=== PATIENT | female | born 1985 | race Caucasian/White ===

== ENCOUNTER → 2016-04-15 | Outpatient (CLI) | payer OTHER ==
[~2016-04-15] MED LIST: OXYC1SOL5 PO; OXYC1TAB63 PO; PRENCAP6 PO
== END ==
LOC: HPND 08:17
PROVIDERS: ATTEND Obstetrics & Gynecology
DX: O35.8XX0 Maternal care for other (suspected) fetal abnormality and damage, not applicable or unspecified (principal); O76 Abnormality in fetal heart rate and rhythm complicating labor and delivery
CPT/HCPCS: 59025; 76811; 76825; 76827; 93325

== ENCOUNTER 2016-07-18 10:18 | Inpatient (IN) | payer OTHER ==
[2016-07-18] VITALS (50 sets, daily range): BP systolic 93–120; BP diastolic 46–67; PULSE 57–102; RESP 16–18; TEMP 98.2–98.7
[~2016-07-18 10:18] MED LIST changes: -OXYC1TAB63 PO
--- NOTE | 2016-07-18 11:03 | PD ---
HPI Travel History International Travel<30 Days: No Contact w/Intl Traveler<30Days: No Known Affected Area: No History of Present Illness HPI This patient is a 30-year-old 3 para 2001 EDC is July 31, 2016 presently at 38 weeks and 1 day she presents with contractions since last evening. Stated that they were irregular however this morning when she awoke they resumed at around 8 AM occurring every 4-5 minutes lasting for about 50-60 seconds. No rupture of membranes no vaginal bleeding the baby is active. care with Dr. Gregorio Mercado course is significant for Rh- for which she received RhoGAM her group B strep is negative states labs and ultrasounds have been normal History Past Medical History Narrative Medical No known drug allergies no major medical problems Obstetric History Obstetric History First baby born 2013 male weight 7 lbs. 15 oz. vaginal delivery Second baby born 2014 male infant weight 6 lbs. 15 oz. 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 MRSA PCR Screens negative 01/16/15 and 01/18/15. Cleared by Infection Control. Home Meds Active Scripts Oxycodone W/ Acetaminophen (Oxycodone/Acetaminophen 5-325 mg/5Ml)1 Tab Tab1 Tab PO Q4H PRN (PAIN SCALE 1 TO 4) #20 TAB Prov:Gregorio Mercado MD 01/18/15 Reported Medications Mv & Min W/Fe Fumarat ( 1) Cap1 Cap PO 01/16/15 Review of Systems Gastrointestinal: Abdominal Pain (irregular contractions) Physical Exam Narrative GENERAL: Well-nourished, well-developed patient. Alert oriented 3 and cooperative in no acute distress SKIN: Warm and dry. HEAD: Normocephalic and atraumatic. EYES: No scleral icterus. No injection or drainage. Conjunctiva are pink ENT: No nasal drainage noted. Mucous membranes pink. Airway patent. Mucous membranes are moist NECK: Supple, trachea midline. No JVD. No thyromegaly no lymphadenopathy CARDIOVASCULAR: Regular rate and rhythm without murmurs, gallops, or rubs. RESPIRATORY: Breath sounds equal bilaterally. No accessory muscle use. ABDOMEN/GI: Gravid consistent with stated gestational age mild palpable contractions estimated weight 6-1/2 pounds Gravid to [-] weeks size 38 Fundal Height: [-] GENITOURINARY: External Genitalia: intact and normal in appearance BUS glands: [-] Cervix: [-] Posterior soft Dilatation: [-] 4 cm Effacement: [-] 90% effaced Station: [-] -1 station Presentation: [-] Vertex Membranes: [intact Uterine Contractions: [-] Every 3 minutes FHT's: Category: [-] 1 Baseline: [-] 150 Reactive: [-] + Accelerations up to 180 Variability: [-] Moderate Decels: [-] 0 EXTREMITIES: No cyanosis or edema. 2+ reflexes NEUROLOGICAL: Awake and alert. Motor and sensory grossly within normal limits. Five out of 5 muscle strength in all muscle groups. Normal speech. Data Data Vital Signs Reviewed: Yes (blood pressure 114/61 pulse is 94 she is afebrile) [facility] Medical Record Reviewed: No (no records available at this time will obtain copy from the office) Interpretation(s) 30-year-old 3 para 2 at 38 weeks and 1 day Early labor Group B strep negative Rh- received RhoGAM at 28 weeks Plan External monitoring Discussed with Dr. Mercado concerning admission versus observation Patient unsure about an epidural will give it consideration Physician Communication Spoke with Dr. Mercado states to admit the patient in active labor Diagnosis Diagnosis: Primary Impression: with 38 completed weeks gestation Additional Impression: Irregular contractions Joanie Quinones MD July 18, 2016 11:03
[2016-07-18] MEDS ORDERED: LACTATED RINGER'S 1000 ML INJ 1,000 ML IV SCH (11:08)
[2016-07-18] MEDS ORDERED: LACTATED RINGER'S 1000 ML INJ 1,000 ML IV PRN (11:08)
--- NOTE | 2016-07-18 11:08 | HHI.HP ---
History & Physical H&P HPI HPI Travel History International Travel<30 Days: No Contact w/Intl Traveler<30Days: No Known Affected Area: No History of Present Illness HPI This patient is a 30-year-old 3 para 2001 EDC is July 31, 2016 presently at 38 weeks and 1 day she presents with contractions since last evening. Stated that they were irregular however this morning when she awoke they resumed at around 8 AM occurring every 4-5 minutes lasting for about 50-60 seconds. No rupture of membranes no vaginal bleeding the baby is active. care with Dr. Gregorio Mercado course is significant for Rh- for which she received RhoGAM her group B strep is negative states labs and ultrasounds have been normal History (Limited) History Past Medical History Narrative Medical No known drug allergies no major medical problems Obstetric History Obstetric History First baby born 2013 male weight 7 lbs. 15 oz. vaginal delivery Second baby born 2014 male weight 6 lbs. 15 oz. 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 MRSA PCR Screens negative 01/16/15 and 01/18/15. Cleared by Infection Control. Home Meds Active Scripts Oxycodone W/ Acetaminophen (Oxycodone/Acetaminophen 5-325 mg/5Ml)1 Tab Tab1 Tab PO Q4H PRN (PAIN SCALE 1 TO 4) #20 TAB Prov:Gregorio Mercado MD 01/18/15 Reported Medications Mv & Min W/Fe Fumarat ( 1) Cap1 Cap PO 01/16/15 ROS Review of Systems Gastrointestinal: Abdominal Pain (irregular contractions) Physical Exam Physical Exam Narrative GENERAL: Well-nourished, well-developed patient. Alert oriented 3 and cooperative in no acute distress SKIN: Warm and dry. HEAD: Normocephalic and atraumatic. EYES: No scleral icterus. No injection or drainage. Conjunctiva are pink ENT: No nasal drainage noted. Mucous membranes pink. Airway patent. Mucous membranes are moist NECK: Supple, trachea midline. No JVD. No thyromegaly no lymphadenopathy CARDIOVASCULAR: Regular rate and rhythm without murmurs, gallops, or rubs. RESPIRATORY: Breath sounds equal bilaterally. No accessory muscle use. ABDOMEN/GI: Gravid consistent with stated gestational age mild palpable contractions estimated weight 6-1/2 pounds Gravid to [-] weeks size 38 Fundal Height: [-] GENITOURINARY: External Genitalia: intact and normal in appearance BUS glands: [-] Cervix: [-] Posterior soft Dilatation: [-] 4 cm Effacement: [-] 90% effaced Station: [-] -1 station Presentation: [-] Vertex Membranes: [intact Uterine Contractions: [-] Every 3 minutes FHT's: Category: [-] 1 Baseline: [-] 150 Reactive: [-] + Accelerations up to 180 Variability: [-] Moderate Decels: [-] 0 EXTREMITIES: No cyanosis or edema. 2+ reflexes NEUROLOGICAL: Awake and alert. Motor and sensory grossly within normal limits. Five out of 5 muscle strength in all muscle groups. Normal speech. Data Data Data Vital Signs Reviewed: Yes (blood pressure 114/61 pulse is 94 she is afebrile) [facility] Medical Record Reviewed: No (no records available at this time will obtain copy from the office) Interpretation(s) 30-year-old 3 para 2 at 38 weeks and 1 day Early labor Group B strep negative Rh- received RhoGAM at 28 weeks Plan External monitoring Discussed with Dr. Mercado concerning admission versus observation Patient unsure about an epidural will give it consideration Physician Communication Spoke with Dr. Mercado states to admit the patient in active labor Diagnosis Diagnosis: Primary Impression: with 38 completed weeks gestation Additional Impression: Irregular contractions Joanie Quinones MD July 18, 2016 11:03 Joanie Quinones MD July 18, 2016 11:08
[2016-07-18] MEDS ORDERED: ONDANSETRON HCL 4 MG/2 ML VIAL IV PRN (11:15)
[2016-07-18] MEDS ORDERED: SODIUM CHLORID 0.9% 500 ML INJ 500 ML IV PRN (11:15)
[2016-07-18] MEDS ORDERED: LIDOCAINE HCL 1% 50 ML VIAL I-DERMAL PRN (11:15)
[2016-07-18] MEDS ORDERED: CITRIC ACID-SODIUM CITRATE LIQ 30 ML UDC PO SCH (11:15)
[2016-07-18] MEDS ORDERED: MINERAL OIL 10 ML VIAL TOPICAL PRN (11:15)
[2016-07-18] MEDS ORDERED: OXYTOCIN 30 UNITS-500ML PREMIX 500 ML IV ONE (11:15)
[2016-07-18] MEDS ORDERED: LIDOCAINE HCL 1% 50 ML VIAL INFIL PRN (11:15)
[2016-07-18] MEDS ORDERED: SODIUM CHLOR 0.9% 1000 ML INJ 1,000 ML IV PRN (11:28)
[2016-07-18 12:07] LABS: BLOOD, URINE NEG (NEG); COMMENT (UR) CULT NOT INDICATED; CULTURE IF INDICATED CULT NOT INDICATED; GLUCOSE,URINE NEG (NEG); KETONE, URINE NEG (NEG); MUCUS URINE FEW /lpf (OCC); NITRITE,URINE NEG (NEG); PH, URINE 7.5 (5.0-8.5); SQUAMOUS EPITHELIAL CELL URINE <1 /hpf (0-5); URINE COLOR YELLOW (YELLW/STRAW)
[2016-07-18 12:09] LABS: AUTOMATED NEUTROPHIL # 6.7 TH/MM3 (1.8-7.7); BASOPHIL % 0.4 % (0.0-2.0); EOSINOPHIL # 0.1 TH/MM3 (0-0.4); EOSINOPHIL % 0.6 % (0.0-4.0); HEMATOCRIT 33.6 % (35.0-46.0); HEMO FLAGS DIFF FINAL; LYMPH % 26.5 % (9.0-44.0); LYMPHOCYTE # 2.7 TH/MM3 (1.0-4.8); MEAN CORPUSCULAR HGB CONC 33.7 % (32.0-36.0); MONO % 7.6 % (0.0-8.0); NEUT % 64.9 % (16.0-70.0); PLATELET COUNT 198 TH/MM3 (150-450); RED BLOOD COUNT 3.66 MIL/MM3 (4.00-5.30); RED CELL DISTRIBUTION WIDTH 13.7 % (11.6-17.2); WHITE BLOOD COUNT 10.3 TH/MM3 (4.0-11.0)
[2016-07-18] MEDS ORDERED: fentaNYL 2MCG-BUPIV 0.125% INJ 100 ML ONE (14:34)
[2016-07-18] MEDS ORDERED: ePHEDrine/NS 25 MG/5 ML SYR ONE ×2 (14:34→14:55)
[2016-07-18] MEDS ORDERED: BUPIVACAINE HCL PF 0.25% 10 ML VIAL ONE (14:54)
[2016-07-18] MEDS ORDERED: ePHEDrine/NS 25 MG/5 ML SYR IV PRN (15:45)
[2016-07-18] MEDS ORDERED: NO SYSTEM NARCOTICS PRN (16:00)
[2016-07-18] MEDS ORDERED: DIPHTH/TETANUS/ACEL PERTUSSIS (BOOSTER) 0.5 ML VIAL/PFS IM ONE (16:00)
[2016-07-18] MEDS ORDERED: fentaNYL 2MCG-BUPIV 0.125% 100 ML EPIDURAL SCH (16:00)
[2016-07-18] MEDS ORDERED: DO NOT ADMINISTER ANTICOAGULANTS PRN (16:00)
[2016-07-18] MEDS ORDERED: MEASLES, MUMPS, RUBELLA VACCINE 0.5 ML VIAL SQ ONE (16:00)
[2016-07-18] MEDS ORDERED: OXYTOCIN 30 UNITS-500ML PREMIX 500 ML IV SCH (16:45)
--- NOTE | 2016-07-18 18:25 | PD.OB.DELI ---
Delivery Date: July 18, 2016 Anesthesia: Epidural Episiotomy: Left mediolateral Vaginal Delivery: Normal, Spontaneous Presentation: Occiput anterior Nuchal Cord: None Delayed cord clamping (45 sec): Yes Infant: Female, Single One Minute : 9 Five Minute : 9 Weight: 7# Placenta: Spontaneous delivery, Intact, 3 vessel cord Laceration: Vaginal laceration, 2 deg Repair: Chromic running Gregorio Mercado MD July 18, 2016 18:25
[2016-07-18] MEDS ORDERED: ALUMINUM/MAGNESIUM/SIMETH 30 ML CUP PO PRN (18:30)
[2016-07-18] MEDS ORDERED: BENZOCAINE 20% TOPICAL SPRAY 60 ML CAN TOPICAL PRN (18:30)
[2016-07-18] MEDS ORDERED: WITCH HAZEL 50%/GLYCERIN 12.5% 40 PAD JAR TOPICAL PRN (18:30)
[2016-07-18] MEDS ORDERED: DOCUSATE SODIUM 50 MG/SENNA 8.6 MG TAB PO PRN (18:30)
[2016-07-18] MEDS ORDERED: ACETAMINOPHEN 325 MG TAB PO PRN (18:30)
[2016-07-18] MEDS ORDERED: ZOLPIDEM TARTRATE 5 MG TAB PO PRN (18:30)
[2016-07-18] MEDS ORDERED: SODIUM CHLORIDE 0.9% FLUSH 10 ML FLUSH IV FLUSH PRN (18:30)
[2016-07-18] MEDS ORDERED: ONDANSETRON ODT 4 MG TAB PO PRN (18:30)
[2016-07-18] MEDS ORDERED: oxyCODONE/ACETAMINOPHEN 5 MG/325 MG TAB PO PRN ×2 (18:30)
[2016-07-18] MEDS ORDERED: SODIUM CHLORIDE 0.9% FLUSH 10 ML FLUSH IV FLUSH SCH (21:00)
[2016-07-18] MEDS: IBUPROFEN 600 MG TAB PO PRN (22:35)
[2016-07-19] MEDS: IBUPROFEN 600 MG TAB PO PRN ×3 (04:57→18:31)
[2016-07-19 07:30] VITALS: BP 97/59; PULSE 59; RESP 16; TEMP 98.3
--- NOTE | 2016-07-19 09:52 | HHI.OB ---
Subjective Post Day: 1 Remarks doing well Objective Vitals/I&O Vital Signs Date Time Temp Pulse Resp B/P Pulse Ox O2 Delivery O2 Flow Rate FiO2 07/19/16 07:30 97/59 07/19/16 07:30 98.3 59 16 07/18/16 19:56 18 07/18/16 19:30 18 07/18/16 19:17 57 103/50 07/18/16 19:01 64 102/60 07/18/16 18:55 16 07/18/16 18:55 68 103/65 07/18/16 18:45 67 103/66 07/18/16 18:40 16 07/18/16 18:31 71 106/51 07/18/16 18:16 62 104/49 07/18/16 18:15 18 07/18/16 18:06 76 107/57 07/18/16 17:55 84 07/18/16 17:45 71 112/66 07/18/16 17:30 68 106/59 07/18/16 17:20 71 07/18/16 17:15 69 07/18/16 17:15 68 98/54 07/18/16 17:00 71 07/18/16 17:00 87 108/60 07/18/16 16:50 92 07/18/16 16:45 94 07/18/16 16:45 94 102/56 07/18/16 16:40 83 07/18/16 16:35 95 07/18/16 16:31 63 106/59 07/18/16 16:30 83 07/18/16 16:30 98.2 16 07/18/16 16:25 65 07/18/16 16:20 64 07/18/16 16:15 84 97/62 07/18/16 16:15 102 07/18/16 16:10 61 07/18/16 16:05 67 07/18/16 16:01 74 108/54 07/18/16 16:00 86 07/18/16 15:55 77 115/56 07/18/16 15:55 77 07/18/16 15:51 81 115/67 07/18/16 15:50 88 07/18/16 15:45 82 119/59 07/18/16 15:45 85 07/18/16 15:41 81 120/57 07/18/16 15:40 83 07/18/16 15:35 74 113/64 07/18/16 15:35 73 07/18/16 15:34 16 07/18/16 15:30 77 07/18/16 15:30 75 96/54 07/18/16 15:28 77 102/52 07/18/16 15:26 73 93/46 07/18/16 15:25 77 07/18/16 15:25 78 98/46 07/18/16 15:22 78 105/49 07/18/16 15:20 74 104/50 07/18/16 15:20 68 07/18/16 15:18 70 101/51 07/18/16 15:16 66 104/54 07/18/16 15:15 70 07/18/16 15:15 70 104/57 07/18/16 15:13 69 105/48 07/18/16 15:10 81 07/18/16 14:22 98.7 07/18/16 14:22 18 07/18/16 14:22 79 109/57 07/18/16 12:36 70 103/58 Objective Remarks GENERAL: Well-nourished, well-developed patient. ABDOMEN/GI: Abdomen soft, non-tender. Fundus: Firm, non-tender at umbilicus. GENITOURINARY: Light to moderate bleeding. EXTREMITIES: No cyanosis or edema, non-tender, without signs of DVT. Medications and IVs Current Medications Medications (Trade) Dose Ordered Sig/Cornelius Route Start Time Stop Time Status Last Admin Lactated Ringer's 1,000 ml @ 125 mls/hr Q8H IV 07/18/16 11:08 07/18/16 15:33 Lactated Ringer's 1,000 ml @ 3,000 mls/hr Q20M PRN IV 07/18/16 11:08 Sodium Chloride 500 ml @ 1,000 mls/hr ONCE PRN IV 07/18/16 11:15 07/19/16 11:14 (NS 1000 ml Inj) 1,000 ml @ 100 mls/hr Q10H PRN IV 07/18/16 11:28 (Zofran Inj) 4 mg Q6H PRN IV 07/18/16 11:15 (fentaNYL INJ) 50 mcg Q1H PRN IV PUSH 07/18/16 11:15 (fentaNYL INJ) 100 mcg Q1H PRN IV PUSH 07/18/16 11:15 (Muri-Lube Oil) 10 ml UNSCH PRN TOPICAL 07/18/16 11:15 Miscellaneous Information No systemic narcotics to be given except... UNSCH PRN .XX 07/18/16 16:00 07/19/16 15:59 Miscellaneous Information DO NOT ADMINISTER ANY ANTICOAGUL... UNSCH PRN .XX 07/18/16 16:00 07/19/16 15:59 (fentaNYL 2MCG-BUPIV 0.125% INJ) 100 ml @ 0 mls/hr TITRATE EPIDURAL 07/18/16 16:00 07/18/16 15:34 Ephedrine Sulfate 10 mg 10 mg UNSCH PRN IV 07/18/16 15:45 07/19/16 15:44 (Pitocin 30 Units-NS 500 ml Premix) 500 ml @ 0 mls/hr TITRATE IV 07/18/16 16:45 07/18/16 16:42 (NS Flush) 2 ml BID IV FLUSH 07/18/16 21:00 (NS Flush) 2 ml UNSCH PRN IV FLUSH 07/18/16 18:30 (Tylenol) 650 mg Q4H PRN PO 07/18/16 18:30 (Motrin) 600 mg Q6H PRN PO 07/18/16 18:30 07/19/16 04:57 (Percocet 5-325 Mg) 1 tab Q4H PRN PO 07/18/16 18:30 (Percocet 5-325 Mg) 2 tab Q4H PRN PO 07/18/16 18:30 (Americaine 20% Top Spr) 1 spray Q4H PRN TOPICAL 07/18/16 18:30 (Tucks Pads) 1 applic QID PRN TOPICAL 07/18/16 18:30 (Anita-Colace) 2 tab Q12H PRN PO 07/18/16 18:30 (Ambien) 5 mg HS PRN PO 07/18/16 18:30 (Mag-Al Plus Susp Liq) 15 ml Q8H PRN PO 07/18/16 18:30 (Zofran Odt) 4 mg Q6H PRN PO 07/18/16 18:30 Assessment/Plan Problem List: (1) Spontaneous vaginal delivery Discharge Planning doing well dc in am Gregorio Mercado MD July 19, 2016 09:52
[2016-07-19] MEDS ORDERED: OXYC1TAB63 PO (09:56)
--- NOTE | 2016-07-19 09:58 | HHI.DCPOC ---
Discharge Care Plan Diagnosis: (1) Spontaneous vaginal delivery Report Symptoms to Your Doctor -Temperate above 100.5 degrees -Redness, of incision or excessive or foul smelling drainage -Unusual pain or calf pain -Increased vaginal bleeding -Painful or difficulty urinating -Feelings of extreme sadness or anxiety after 2 weeks Goals to Promote Your Health * To prevent worsening of your condition and complications * To maintain your health at the optimal level Directions to Meet Your Goals Take your medications as prescribed Follow your dietary instruction Follow activity as directed Ensure plenty of rest for recovery Drink fluids for hydration Keep your appointments as scheduled Take your immunizations and boosters as scheduled If your symptoms worsen call your PCP, if no PCP go to Urgent Care Center or Emergency Room Smoking is Dangerous to Your Health. Avoid second hand smoke Call the 24-hour crisis hotline for domestic abuse at Gregorio Mercado MD July 19, 2016 09:57
[2016-07-20] MEDS: IBUPROFEN 600 MG TAB PO PRN ×2 (00:32→07:06)
--- NOTE | 2016-07-20 08:15 | HHI.OB ---
Subjective Post Day: 2 Remarks doing well S/p Objective Objective Remarks GENERAL: Well-nourished, well-developed patient. ABDOMEN/GI: Abdomen soft, non-tender. Fundus: Firm, non-tender at umbilicus. GENITOURINARY: Light to moderate bleeding. EXTREMITIES: No cyanosis or edema, non-tender, without signs of DVT. Medications and IVs Current Medications Medications (Trade) Dose Ordered Sig/Cornelius Route Start Time Stop Time Status Last Admin Lactated Ringer's 1,000 ml @ 125 mls/hr Q8H IV 07/18/16 11:08 07/18/16 15:33 Lactated Ringer's 1,000 ml @ 3,000 mls/hr Q20M PRN IV 07/18/16 11:08 (NS 1000 ml Inj) 1,000 ml @ 100 mls/hr Q10H PRN IV 07/18/16 11:28 (Zofran Inj) 4 mg Q6H PRN IV 07/18/16 11:15 (fentaNYL INJ) 50 mcg Q1H PRN IV PUSH 07/18/16 11:15 (fentaNYL INJ) 100 mcg Q1H PRN IV PUSH 07/18/16 11:15 Mineral Oil 10 ml 10 ml UNSCH PRN TOPICAL 07/18/16 11:15 Fentanyl/ Bupivacaine HCl 100 ml @ 0 mls/hr TITRATE EPIDURAL 07/18/16 16:00 07/18/16 15:34 (Pitocin 30 Units-NS 500 ml Premix) 500 ml @ 0 mls/hr TITRATE IV 07/18/16 16:45 07/18/16 16:42 (NS Flush) 2 ml BID IV FLUSH 07/18/16 21:00 (NS Flush) 2 ml UNSCH PRN IV FLUSH 07/18/16 18:30 (Tylenol) 650 mg Q4H PRN PO 07/18/16 18:30 (Motrin) 600 mg Q6H PRN PO 07/18/16 18:30 07/20/16 07:06 (Percocet 5-325 Mg) 1 tab Q4H PRN PO 07/18/16 18:30 (Percocet 5-325 Mg) 2 tab Q4H PRN PO 07/18/16 18:30 (Americaine 20% Top Spr) 1 spray Q4H PRN TOPICAL 5/12/17 18:30 (Tucks Pads) 1 applic QID PRN TOPICAL 07/18/16 18:30 (Anita-Colace) 2 tab Q12H PRN PO 07/18/16 18:30 (Ambien) 5 mg HS PRN PO 07/18/16 18:30 (Mag-Al Plus Susp Liq) 15 ml Q8H PRN PO 07/18/16 18:30 (Zofran Odt) 4 mg Q6H PRN PO 07/18/16 18:30 Assessment/Plan Problem List: (1) Spontaneous vaginal delivery Discharge Planning doing well dc today Gregorio Mercado MD July 20, 2016 08:15
--- NOTE | 2016-07-20 08:17 | HHI.DS ---
Admission Date July 18, 2016 at 11:07 Discharge Date: July 20, 2016 Admitting Diagnosis Diagnosis: (1) Spontaneous vaginal delivery Delivery Date: July 18, 2016 Vaginal Delivery: Normal : Female, Single Brief History This patient is a 30-year-old 3 para 2001 EDC is July 31, 2016 presently at 38 weeks and 1 day she presents with contractions since last evening. Stated that they were irregular however this morning when she awoke they resumed at around 8 AM occurring every 4-5 minutes lasting for about 50-60 seconds. No rupture of membranes no vaginal bleeding the baby is active. care with Dr. Gregorio Mercado course is significant for Rh- for which she received RhoGAM her group B strep is negative states labs and ultrasounds have been normal Hospital Course and DC home PPD #2 doing well Pt Condition on Discharge: Good Discharge Disposition: Discharge Home Discharge Instructions Diet Instructions: As Tolerated, No Restrictions Activities You Can Perform: Pelvic Rest Activities to Avoid: Driving for 24 hrs Follow up Referrals: [facility] - 2 Weeks @ [facility] with Gregorio Mercado MD New Medications: Oxycodone-Acetaminophen (Oxycodone-Acetaminophen) 5-325 mg Tab 1 TAB PO Q4H PRN PAIN SCALE 3 TO 5 #20 TAB Continued Medications: Oxycodone W/ Acetaminophen (Oxycodone/Acetaminophen 5-325 mg/5Ml) 1 Tab Tab 1 TAB PO Q4H PRN PAIN SCALE 1 TO 4 #20 TAB Mv & Min W/Fe Fumarat ( 1) Cap 1 CAP PO CAP Gregorio Mercado MD July 20, 2016 08:17
[2016-07-20 08:25] VITALS: BP 97/64; PULSE 80; RESP 16; TEMP 99
== END 2016-07-20 10:02 | disposition home or self-care (01) | DRG 775 ==
LOC: HOBED 10:18 → H2EA 11:07 → H1EA 20:06
PROVIDERS: ADMIT Obstetrics & Gynecology; ATTEND Obstetrics & Gynecology
PROC: 10E0XZZ Delivery of Products of Conception, External Approach (ICD-10-PCS; principal; 2016-07-18)
PROC: 0KQM0ZZ Repair Perineum Muscle, Open Approach (ICD-10-PCS; 2016-07-18)
PROC: 0W8NXZZ Division of Female Perineum, External Approach (ICD-10-PCS; 2016-07-18)
PROC: 00HU33Z Insertion of Infusion Device into Spinal Canal, Percutaneous Approach (ICD-10-PCS; 2016-07-18)
PROC: 3E0R3CZ (ICD-10-PCS; 2016-07-18)
DX: O70.1 Second degree perineal laceration during delivery (principal); Z37.0 Single live birth; O26.893 Other specified pregnancy related conditions, third trimester; Z3A.38 38 weeks gestation of pregnancy; Z67.41 Type O blood, Rh negative
CPT/HCPCS: 81001; 85025; 85461; 86850; 86900; 86901; 90384; 90715; 99285; J2590; J2790; J7120